=== PATIENT | male | born 1980 | race Caucasian/White ===

== ENCOUNTER 2018-10-05 02:37 | Emergency (ER) | payer OTHER ==
[~2018-10-05] VITALS: Ht 172.7 cm; Wt 78.9 kg
[2018-10-05 02:42] VITALS: Ht 172.7 cm; Wt 78.9 kg
[2018-10-05 03:39] LABS: BASOPHIL % 0.4 % (0-2); PLATELET COUNT 340 x10^3mcL (130-400); RED CELL DISTRIBUTION WIDTH 12.4 % (11.5-14.5)
[2018-10-05 03:53] LABS: CK-MB 2.6 ng/mL (0-3.6)
[2018-10-05 04:05] LABS: CALCIUM 9.8 mg/dL (8.5-10.1); CARBON DIOXIDE 24.8 mmol/L (21-32); CHLORIDE SERUM 99 mmol/L (98-107); GFR1 > 60 mL/min; GLUCOSE SERUM 112 mg/dL (74-106); POTASSIUM SERUM 3.3 mmol/L (3.5-5.1); SODIUM SERUM 137 mmol/L (136-145)
[2018-10-05 04:12] LABS: ALBUMIN 4.7 g/dL (3.4-5.0); ALKALINE PHOSPHATASE 73 U/L (46-116); ALT/SGPT 35 U/L (16-63); AST/SGOT 27 U/L (15-37); BILIRUBIN TOTAL 1.07 mg/dL (0.20-1.00); C REACTIVE PROTEIN 0.2 mg/dL (<=0.9)
[2018-10-05 04:40] LABS: ERYTHROCYTE SED RATE 7 mm/hr (0-15)
[2018-10-05 06:12] VITALS: BP 137/88
== END 2018-10-05 06:12 | disposition home or self-care (01) ==
LOC: ED 02:37
PROVIDERS: Specialist
DX: R10.32 Left lower quadrant pain (principal); R11.10 Vomiting, unspecified
CPT/HCPCS: J1200; J1610; J1885; J2250; J2310; J2405; J3010; J3490; J7030

== ENCOUNTER 2018-10-09 07:42 | Emergency (ER) | payer OTHER ==
[~2018-10-09] VITALS: Ht 172.7 cm; Wt 80.5 kg
[2018-10-09 07:50] VITALS: Ht 172.7 cm; Wt 80.5 kg
[2018-10-09 08:32] LABS: BASOPHIL % 0.2 % (0-2); PLATELET COUNT 308 x10^3mcL (130-400); RED CELL DISTRIBUTION WIDTH 12.6 % (11.5-14.5)
[2018-10-09 08:39] LABS: CALCIUM 9.1 mg/dL (8.5-10.1); CARBON DIOXIDE 22.4 mmol/L (21-32); CHLORIDE SERUM 103 mmol/L (98-107); CREATININE SERUM 0.9 mg/dL (0.7-1.3); GFR1 > 60 mL/min; GLUCOSE SERUM 123 mg/dL (74-106); POTASSIUM SERUM 3.3 mmol/L (3.5-5.1); SODIUM SERUM 138 mmol/L (136-145)
[2018-10-09 08:41] LABS: ALKALINE PHOSPHATASE 81 U/L (46-116); ALT/SGPT 39 U/L (16-63); AST/SGOT 32 U/L (15-37); BILIRUBIN TOTAL 0.6 mg/dL (0.20-1.00); LIPASE 349 IU/L (73-393); TOTAL PROTEIN, SERUM 7.1 g/dL (6.4-8.2)
[2018-10-09 12:20] VITALS: BP 134/74
== END 2018-10-09 12:20 | disposition short-term general hospital (02) ==
LOC: ED 07:42
PROVIDERS: Emergency Medicine
DX: R10.84 Generalized abdominal pain (principal); R10.13 Epigastric pain; R11.2 Nausea with vomiting, unspecified; R19.7 Diarrhea, unspecified
CPT/HCPCS: J2270; J2405; J3490; J7030; Q0162; Q9967